=== PATIENT | male | born 1990 | race Hispanic/Latino ===

== ENCOUNTER 2018-01-08 19:21 | Observation (INO) | payer BC ==
[2018-01-08] MEDS ORDERED: ONDANSETRON 4 MG/2 ML VIAL ONE (21:05)
[2018-01-08] MEDS ORDERED: NA CHLORIDE 0.9% 1,000 ML ONE ×2 (21:05→22:52)
[2018-01-08] MEDS ORDERED: FAMOTIDINE 20 MG/2 ML VIAL IV ONE (21:05)
[2018-01-08 21:38] LABS: Absolute Lymphocytes (CBC) 1.3 K/uL (0.7-4.9); Absolute Monocytes 0.7 K/uL (0.1-1.3); Absolute Neutrophil 12.7 K/uL (1.8-8.0); Basophils % 0.6 % (0-1.3); Eosinophils % 0.1 % (0-4.4); Hematocrit 50.6 % (39.6-49.0); Lymphocytes % 8.8 % (15.3-44.8); MCH 31.7 pg (27.0-35.0); MCV 93.5 fL (80-100); Monocytes % 4.5 % (3.3-12.3); RBC Red Blood Cell Count 5.41 M/uL (4.33-5.43)
[2018-01-08 21:51] LABS: Albumin 5.1 g/dL (3.4-5.0); Bilirubin Direct 0.2 mg/dL (0-0.2); Potassium 4.4 mmol/L (3.5-5.1); Protein, Total 9.7 g/dL (6.4-8.2)
[2018-01-08 22:00] LABS: Blood Morphology Comment NOT SEEN (NOT SEEN); Platelet Estimate ADEQ; Urine White Blood Cell Casts OK
[2018-01-08 22:04] LABS: Calcium Oxalate Crystals- Ur MODERATE (NONE SEEN); Urine Bacteria 20-50 /HPF (NONE SEEN); Urine Culture Reflex Order REFLEXED; Urine Mucus 3+ /HPF (NONE SEEN); Urine RBC <5 /HPF (NONE SEEN)
[2018-01-08 22:08] LABS: Urine Blood NEGATIVE (NEG); Urine Glucose NEGATIVE (NEG); Urine Protein 3+ (NEG); Urine Specific Gravity >1.030 (1.005-1.030); Urine pH 5.5 (5.0-7.0)
--- NOTE | 2018-01-08 22:15 | RAD REPORT ---
EXAM DESCRIPTION: RAD - Chest Single View - 01/08/2018 9:57 pm CLINICAL HISTORY: vomiting Chest pain. COMPARISON: None FINDINGS: Portable technique limits examination quality. The lungs are grossly clear. The heart is normal in size. No displaced fractures. IMPRESSION: No acute intrathoracic process suspected.
--- NOTE | 2018-01-08 22:45 | ER ---
Nurse's Notes [facility] Name: Bryon Cerrato Jr Age: 27 yrs Sex: Male : 1990 Arrival Date: 01/08/2018 Time: 19:27 Bed 20 Private MD: Diagnosis: Acute kidney failure;Nausea and vomiting Presentation: 01/08 20:18 Presenting complaint: Patient states: "I've been throwing up since this morning. I aj1 can't eat or drink anything" Reports RUQ pain. Denies diarrhea, fever. Transition of care: patient was not received from another setting of care. Onset of symptoms was January 08, 2018. Risk Assessment: Do you want to hurt yourself or someone else? Patient reports no desire to harm self or others. Initial Sepsis Screen: Does the patient meet any 2 criteria? No. Patient's initial sepsis screen is negative. Does the patient have a suspected source of infection? No. Patient's initial sepsis screen is negative. Care prior to arrival: None. 20:18 Method Of Arrival: Ambulatory aj1 20:18 Acuity: SANTI 3 aj1 Triage Assessment: 20:20 General: Appears in no apparent distress. uncomfortable, Behavior is calm, cooperative, aj1 agitated. Pain: Complains of pain in left upper quadrant Pain currently is 5 out of 10 on a pain scale. Neuro: Level of Consciousness is awake, alert, obeys commands. Cardiovascular: Patient's skin is warm and dry. Respiratory: Airway is patent Respiratory effort is even, unlabored, Respiratory pattern is regular, symmetrical. GI: Reports nausea, vomiting, Patient currently denies diarrhea. Derm: Skin is pink, warm \\T\\ dry. normal. Historical: - Allergies: 20:20 No Known Allergies; aj1 - Home Meds: 20:20 None [Active]; aj1 - PMHx: 20:20 None; aj1 - PSHx: 20:20 Knee surgery; aj1 - Immunization history:: Flu vaccine is not up to date. - Social history:: Smoking status: Patient/guardian denies using tobacco. - Ebola Screening: : Patient denies travel to an Ebola-affected area in the 21 days before illness onset. Screenin:47 Abuse screen: Denies threats or abuse. Denies injuries from another. Nutritional lp1 screening: No deficits noted. Tuberculosis screening: No symptoms or risk factors identified. Fall Risk None identified. Assessment: 21:15 General: Appears in no apparent distress. Behavior is calm, cooperative, appropriate lp1 for age. Pain: Complains of pain in right upper quadrant Pain currently is 3 out of 10 on a pain scale. Quality of pain is described as aching. Neuro: Level of Consciousness is awake, alert, obeys commands. Cardiovascular: Patient's skin is warm and dry. Respiratory: Respiratory effort is even, unlabored, Breath sounds are clear bilaterally. GI: Abdomen is non-distended, Bowel sounds present X 4 quads. Abd is soft and non tender X 4 quads. Reports nausea, vomiting. : No signs and/or symptoms were reported regarding the genitourinary system. EENT: No signs and/or symptoms were reported regarding the EENT system. Derm: Skin is pink, warm \\T\\ dry. Musculoskeletal: Circulation, motion, and sensation intact. 22:30 Reassessment: Patient is alert, oriented x 3, equal unlabored respirations, skin lp1 warm/dry/pink. Nausea decreased at this time. 23:36 Reassessment: Patient appears in no apparent distress at this time. Patient and/or lp1 family updated on plan of care and expected duration. Pain level reassessed. Patient is alert, oriented x 3, equal unlabored respirations, skin warm/dry/pink. Patient aware of pending admission. 23:36 Reassessment: Dr. Leon at bedside to evaluate patient. lp1 01/09 00:20 Reassessment: Attempted to call report at this time, nurse will call back. lp1 Vital Signs: 01/08 20:20 BP 110 / 65; Pulse 94; Resp 18; Temp 98.5(TE); Pulse Ox 95% on R/A; Weight 88.45 kg aj1 (R); Height 5 ft. 8 in. (172.72 cm) (R); Pain 5/10; 21:09 BP 109 / 68 Supine; Pulse 84 LA; oe 21:10 BP 104 / 71 Sitting; Pulse 99 LA; oe 21:11 BP 109 / 69 Standing; Pulse 100 LA; oe 22:15 BP 109 / 67; Pulse 73; Resp 18; Pulse Ox 99% on R/A; lp1 23:00 BP 108 / 66; Pulse 78; Resp 18; Pulse Ox 99% on R/A; lp1 01/09 00:00 BP 97 / 59; Pulse 77; Resp 16; Pulse Ox 99% on R/A; lp1 01/08 20:20 Body Mass Index 29.65 (88.45 kg, 172.72 cm) aj1 ED Course: 01/08 19:27 Patient arrived in ED. es 20:20 Triage completed. aj1 20:20 Arm band placed on Patient placed in waiting room, Patient notified of wait time. aj1 20:47 Sugey Morris, RN is Primary Nurse. lp1 20:47 Jules Lyn PA is PHCP. cp 20:47 Ion Hanson MD is Attending Physician. cp 21:14 Inserted saline lock: 20 gauge in right antecubital area, using aseptic technique. lp1 Blood collected. 21:16 Patient has correct armband on for positive identification. Bed in low position. Call lp1 light in reach. Pulse ox on. NIBP on. 21:20 Urine Microscopic Only Sent. oe 21:56 X-ray completed. Portable x-ray completed in exam room. Patient tolerated procedure bb2 well. 21:57 XRAY Chest (1 view) In Process Unspecified. EDMS 22:43 Farnaz Ralph MD is Hospitalizing Provider. cp 22:51 CT Abd/Pelvis - Without Cont: no oral contrast In Process Unspecified. EDMS 23:37 No provider procedures requiring assistance completed. Patient admitted, IV remains in lp1 place. Administered Medications: 21:14 Drug: Zofran 4 mg Route: IVP; Site: right antecubital; lp1 22:46 Follow up: Response: Nausea is decreased lp1 21:14 Drug: Pepcid 20 mg Route: IVP; Site: right antecubital; lp1 22:46 Follow up: Response: No adverse reaction lp1 21:14 Drug: NS 0.9% 1000 ml Route: IV; Rate: 1 bolus; Site: right antecubital; lp1 22:45 Follow up: IV Status: Completed infusion; IV Intake: 1000ml lp1 22:50 Drug: NS 0.9% 1000 ml Route: IV; Rate: 1 bolus; Site: right antecubital; lp1 01/09 00:22 Follow up: IV Status: Completed infusion; IV Intake: 1000ml lp1 Intake: 01/08 22:45 IV: 1000ml; Total: 1000ml. lp1 01/09 00:22 IV: 1000ml; Total: 2000ml. lp1 Outcome: 01/08 22:44 Decision to Hospitalize by Provider. cp 23:37 Condition: stable lp1 23:37 Instructed on the need for admit. 01/09 00:31 Admitted to Tele via wheelchair, room 415, with chart, Report called to DOMINIQUE Villalobos lp1 01:06 Patient left the ED. lp1 Signatures: Dispatcher [employer] Norma Villegas, RN RN aj1 Sole Gamez Laura RN RN lp1 Jules Lyn, ALAN PA Chu Eugene Brittany bb2
--- NOTE | 2018-01-08 22:45 | EDPHYS ---
Physician Documentation [facility] Name: Bryon Cerrato Jr Age: 27 yrs Sex: Male : 1990 Arrival Date: 01/08/2018 Time: 19:27 Bed 20 Private MD: ED Physician Ion Hanson HPI: 01/08 21:00 This 27 yrs old Male presents to ER via Ambulatory with complaints of cp Vomiting, Fever, Abdominal Pain. 21:00 The patient presents to the emergency department with nausea, that is mild, vomiting, cp that is continuous. Onset: The symptoms/episode began/occurred today. Historical: - Allergies: 20:20 No Known Allergies; aj1 - Home Meds: 20:20 None [Active]; aj1 - PMHx: 20:20 None; aj1 - PSHx: 20:20 Knee surgery; aj1 - Immunization history:: Flu vaccine is not up to date. - Social history:: Smoking status: Patient/guardian denies using tobacco. - Ebola Screening: : Patient denies travel to an Ebola-affected area in the 21 days before illness onset. ROS: 21:05 Constitutional: Positive for poor PO intake, Negative for body aches, chills, fever. cp 21:05 Eyes: Negative for injury, pain, redness, and discharge. cp 21:05 ENT: Negative for drainage from ear(s), ear pain, sore throat, difficulty swallowing, difficulty handling secretions. 21:05 Cardiovascular: Negative for chest pain, edema, palpitations. 21:05 Respiratory: Negative for cough, shortness of breath, wheezing. 21:05 Abdomen/GI: Positive for nausea, vomiting, Negative for abdominal pain, diarrhea, constipation, black/tarry stool, rectal bleeding. 21:05 Back: Negative for pain at rest, pain with movement, radiated pain. 21:05 : Negative for urinary symptoms. 21:05 Skin: Negative for cellulitis, rash. 21:05 Neuro: Negative for altered mental status, headache, syncope, near syncope, weakness. 21:05 All other systems are negative. Exam: 21:10 Constitutional: The patient appears in no acute distress, alert, awake, non-toxic, well cp developed, well nourished. 21:10 Head/Face: Normocephalic, atraumatic. Eyes: Pupils equal round and reactive to light, cp extra-ocular motions intact. Lids and lashes normal. Conjunctiva and sclera are non-icteric and not injected. Cornea within normal limits. Periorbital areas with no swelling, redness, or edema. 21:10 ENT: External ear(s): are unremarkable, Ear canal(s): are normal, clear, TM's: dullness, bilaterally, Nose: is normal, Mouth: Lips: dry, Oral mucosa: dry, Posterior pharynx: is normal, airway is patent, no erythema, no exudate. 21:10 Neck: ROM/movement: is normal, is supple, without pain, no range of motions limitations, no meningismus, no nuchal rigidity. 21:10 Chest/axilla: Inspection: normal, Palpation: is normal, no crepitus, no tenderness. 21:10 Cardiovascular: Rate: normal, Rhythm: regular, Edema: is not appreciated, JVD: is not appreciated. 21:10 Respiratory: the patient does not display signs of respiratory distress, Respirations: normal, no use of accessory muscles, no retractions, no splinting, no tachypnea, labored breathing, is not present, Breath sounds: are clear throughout, no decreased breath sounds, no stridor, no wheezing. 21:10 Abdomen/GI: Inspection: abdomen appears normal, Bowel sounds: active, all quadrants, Palpation: soft, in all quadrants, mild abdominal tenderness, in the epigastric area, right upper quadrant and left upper quadrant, rebound tenderness, is not appreciated, involuntary guarding, is not appreciated. 21:10 Back: pain, is absent, ROM is normal. 21:10 Skin: cellulitis, is not appreciated, no rash present. 21:10 Neuro: Orientation: to person, place \T\ time. Mentation: lucid, able to follow commands, Cerebellar function: is grossly normal, Motor: moves all fours, strength is normal, Sensation: is normal. Vital Signs: 20:20 BP 110 / 65; Pulse 94; Resp 18; Temp 98.5(TE); Pulse Ox 95% on R/A; Weight 88.45 kg aj1 (R); Height 5 ft. 8 in. (172.72 cm) (R); Pain 5/10; 21:09 BP 109 / 68 Supine; Pulse 84 LA; oe 21:10 BP 104 / 71 Sitting; Pulse 99 LA; oe 21:11 BP 109 / 69 Standing; Pulse 100 LA; oe 22:15 BP 109 / 67; Pulse 73; Resp 18; Pulse Ox 99% on R/A; lp1 23:00 BP 108 / 66; Pulse 78; Resp 18; Pulse Ox 99% on R/A; lp1 01/09 00:00 BP 97 / 59; Pulse 77; Resp 16; Pulse Ox 99% on R/A; lp1 01/08 20:20 Body Mass Index 29.65 (88.45 kg, 172.72 cm) aj1 MDM: 01/08 20:47 Patient medically screened. cp 22:35 Data reviewed: vital signs, nurses notes, lab test result(s), and as a result, I will cp admit patient. 22:35 Test interpretation: by ED physician or midlevel provider: plain radiologic studies. cp Counseling: I had a detailed discussion with the patient and/or guardian regarding: the historical points, exam findings, and any diagnostic results supporting the discharge/admit diagnosis, lab results, radiology results. 01/08 20:52 Order name: Amylase, Serum; Complete Time: 22:29 01/08 20:52 Order name: Basic Metabolic Panel; Complete Time: 22:29 cp 01/08 20:52 Order name: CBC with Diff; Complete Time: 22:29 cp 01/08 20:52 Order name: Creatinine for Radiology; Complete Time: 22:29 01/08 20:52 Order name: Hepatic Function; Complete Time: 22:29 cp 01/08 20:52 Order name: Lipase; Complete Time: 22:29 cp 01/08 20:52 Order name: Urine Microscopic Only; Complete Time: 22:29 cp 01/08 20:58 Order name: Urine Dipstick--Ancillary (enter results); Complete Time: 22:29 ms 01/08 21:09 Order name: XRAY Chest (1 view); Complete Time: 22:29 cp 01/08 21:39 Order name: CBC Smear Scan; Complete Time: 22:29 EDMS 01/08 22:09 Order name: Urine Culture [facility] 01/08 22:31 Order name: CT Abd/Pelvis - Without Cont: no oral contrast 01/08 20:52 Order name: IV Saline Lock; Complete Time: 21:14 cp 01/08 20:52 Order name: Labs collected and sent; Complete Time: 21:15 01/08 20:52 Order name: Urine Dipstick-Ancillary (obtain specimen); Complete Time: 21:00 01/08 20:52 Order name: Orthostatics; Complete Time: 21:20 cp Administered Medications: 21:14 Drug: Zofran 4 mg Route: IVP; Site: right antecubital; lp1 22:46 Follow up: Response: Nausea is decreased lp1 21:14 Drug: Pepcid 20 mg Route: IVP; Site: right antecubital; lp1 22:46 Follow up: Response: No adverse reaction lp1 21:14 Drug: NS 0.9% 1000 ml Route: IV; Rate: 1 bolus; Site: right antecubital; lp1 22:45 Follow up: IV Status: Completed infusion; IV Intake: 1000ml lp1 22:50 Drug: NS 0.9% 1000 ml Route: IV; Rate: 1 bolus; Site: right antecubital; lp1 01/09 00:22 Follow up: IV Status: Completed infusion; IV Intake: 1000ml lp1 Disposition: 06:41 Co-signature as Attending Physician, Ion Hanson MD. pk Disposition: 01/08/18 22:44 Hospitalization ordered by Farnaz Ralph for Inpatient Admission. Preliminary diagnosis are Acute kidney failure, Nausea and vomiting. - Bed requested for Telemetry/MedSurg (Inpatient). - Status is Inpatient Admission. lp1 - Condition is Stable. - Problem is new. - Symptoms have improved. UTI on Admission? No Signatures: Dispatcher [employer] EDCA Norma De Jesus RN RN aj1 Katy Mendez RN RN kl Lam, Pin, MD MD pk Sugey Morris RN RN lp1 Jules Lyn PA PA cp Corrections: (The following items were deleted from the chart) 00:00 01/08 22:44 Hospitalization Ordered by Farnaz Ralph MD for Inpatient Admission. pepe Preliminary diagnosis is Acute kidney failure; Nausea and vomiting. Bed requested for Telemetry/MedSurg (Inpatient). Status is Inpatient Admission. Condition is Stable. Problem is new. Symptoms have improved. UTI on Admission? No. cp 01/09 01:06 00:00 01/08/2018 22:44 Hospitalization Ordered by Farnaz Ralph MD for Inpatient lp1 Admission. Preliminary diagnosis is Acute kidney failure; Nausea and vomiting. Bed requested for Telemetry/MedSurg (Inpatient). Status is Inpatient Admission. Condition is Stable. Problem is new. Symptoms have improved. UTI on Admission? No. kl
--- NOTE | 2018-01-08 23:52 | P.HP ---
Certification for Inpatient Patient admitted to: Observation With expected LOS: <2 Midnights Practitioner: I am a practitioner with admitting privileges, knowledge of patient current condition, hospital course, and medical plan of care. Services: Services provided to patient in accordance with Admission requirements found in Title 42 Section 412.3 of the Code of Federal Regulations Patient History Date of Service: 01/08/18 Reason for admission: Intractable nausea vomiting History of Present Illness: Mr. Cerrato is a 27-year-old male, with a pretty healthy past medical history, who start this morning with persistent nausea and vomiting. He was unable to keep any solid or fluid. He also is complaining of left lower quadrant pain, 4/ 10 of intensity, nonradiating. The patient denied any fever or chills. He also denied diarrhea. About 1 week ago, when he was working outside, he felt like he is was going to faint, however after this episode he recovered and he was asymptomatic until today. Laboratory work is remarkable for leukocytosis, 14.8 K, elevated creatinine at 3.7. His vital signs remained stable during his stay in ED. Home medications list reviewed: Yes (None) - Past Medical/Surgical History Past Medical History: Reviewed- Non-Contributory -: Knee surgery - Family History Family History: Reviewed- Non-Contributory - Social History Smoking Status: Never smoker Alcohol use: No CD- Drugs: No Caffeine use: Yes Place of Residence: Home Review of Systems 10-point ROS is otherwise unremarkable Physical Examination - Physical Exam General: Alert, In no apparent distress HEENT: Atraumatic, PERRLA, Mucous membr. moist/pink, EOMI, Sclerae nonicteric Neck: Supple, 2+ carotid pulse no bruit, No LAD, Without JVD or thyroid abnormality Respiratory: Clear to auscultation bilaterally, Normal air movement Cardiovascular: Regular rate/rhythm, Normal S1 S2 Gastrointestinal: Normal bowel sounds, No tenderness Musculoskeletal: No tenderness Integumentary: No rashes Neurological: Normal speech, Normal strength at 5/5 x4 extr, Normal tone, Normal affect Lymphatics: No axilla or inguinal lymphadenopathy - Studies Laboratory Data (last 24 hrs) 01/08/18 21:10: Creatinine 3.70 H 01/08/18 21:10: WBC 14.8 H, Hgb 17.2, Hct 50.6 H, Plt Count 266 01/08/18 21:10: Sodium 138, Potassium 4.4, BUN 28 H, Creatinine 3.70 H, Glucose 120 H, Total Bilirubin 1.0, AST 20, ALT 35, Alkaline Phosphatase 110, Amylase 85 , Lipase 168 Assessment and Plan - Problems (Diagnosis) (1) Intractable nausea and vomiting Current Visit: Yes Status: Acute Qualifiers: Vomiting type: unspecified Qualified Code(s): R11.2 - Nausea with vomiting , unspecified (2) Acute renal injury Current Visit: Yes Status: Acute - Plan The patient will be admitted to the hospital due to intractable nausea vomiting , and also acute renal injury. The etiology of his symptoms is not clear yet. CT abdomen and pelvis has been done, report is pending. Will order antiemetic medication, IV fluid, I will start with clear liquid diet. - Advance Directives Does patient have a Living Will: No Does patient have a Durable POA for Healthcare: No - Code Status/Comfort Care Code Status Assessed: Yes Code Status: Full Code
--- NOTE | 2018-01-09 01:18 | RAD REPORT ---
EXAM DESCRIPTION: CT - Abdomen Pelvis Wo Contrast - 01/08/2018 10:50 pm CLINICAL HISTORY: Abdominal pain. acute renal failure COMPARISON: Chest Single View dated 01/08/2018 TECHNIQUE: CT imaging of the abdomen and pelvis was performed without contrast. Solid organ, bowel a nd vascular assessment is limited due to lack of IV and oral contrast. All CT scans are performed using dose optimization technique as appropriate and may include automated exposure control or mA/KV adjustment according to patient size. FINDINGS: The lower lung lopez are clear. The liver, spleen, pancreas, adrenal glands and kidneys are within normal limits for a limited non-co ntrast examination. No bowel obstruction, free air, free fluid or abscess. The appendix is normal. The osseous structures are within normal limits. IMPRESSION: No acute intra-abdominal or pelvic findings. A limited non-contrast examination was performed as detailed.
[2018-01-09 01:19] VITALS: BMI 28.0
[2018-01-09] MEDS ORDERED: ACETAMINOPHEN 500 MG TAB PO PRN (01:19)
[2018-01-09] MEDS ORDERED: ONDANSETRON 4 MG/2 ML VIAL IV PRN (01:19)
[2018-01-09] MEDS: NA CHLORIDE 0.9% 1,000 ML IV SCH ×3 (02:19→16:31)
[2018-01-09 05:20] LABS: Absolute Lymphocytes (CBC) 1.9 K/uL (0.7-4.9); Absolute Monocytes 0.9 K/uL (0.1-1.3); Absolute Neutrophil 6.9 K/uL (1.8-8.0); Basophils % 0.8 % (0-1.3); Eosinophils % 0.9 % (0-4.4); Lymphocytes % 19.1 % (15.3-44.8); MCH 32.2 pg (27.0-35.0); MCV 93.3 fL (80-100); MPV 8.8 fL (7.6-11.3); RBC Red Blood Cell Count 4.39 M/uL (4.33-5.43)
[2018-01-09 05:28] LABS: Potassium 3.3 mmol/L (3.5-5.1)
[2018-01-09] MEDS ORDERED: POTASSIUM CL SA 10 MEQ TAB PO ONE ×2 (07:09→14:06)
--- NOTE | 2018-01-09 13:10 | P.PN ---
Subjective Date of Service: 01/09/18 Chief Complaint: Intractable nausea vomiting Patient was seen and examined at bedside with RN. Chart reviewed. Patient is doing much better than before. Nausea vomiting has resolved. Patient was able to keep his diet down. No pain noted at this time. Review of Systems General: As per HPI Physical Examination - Vital Signs Temperature: 97.5 F Blood Pressure: 105/58 Pulse: 67 Respirations: 18 Pulse Ox (%): 99 - Physical Exam General: Alert, In no apparent distress HEENT: Atraumatic, PERRLA, EOMI Neck: Supple, JVD not distended Respiratory: Clear to auscultation bilaterally, Normal air movement Cardiovascular: Regular rate/rhythm, Normal S1 S2 Gastrointestinal: Normal bowel sounds, No tenderness Musculoskeletal: No tenderness Integumentary: No rashes Neurological: Normal speech, Normal tone, Normal affect Lymphatics: No axilla or inguinal lymphadenopathy - Studies Laboratory Data (last 24 hrs) 01/08/18 21:10: Creatinine 3.70 H 01/08/18 21:10: WBC 14.8 H, Hgb 17.2, Hct 50.6 H, Plt Count 266 01/08/18 21:10: Sodium 138, Potassium 4.4, BUN 28 H, Creatinine 3.70 H, Glucose 120 H, Total Bilirubin 1.0, AST 20, ALT 35, Alkaline Phosphatase 110, Amylase 85 , Lipase 168 Medications List Reviewed: Yes Assessment & Plan - Problems (Diagnosis) (1) Acute renal injury Current Visit: Yes Status: Acute Plan: BUN and creatinine improving today. Most likely secondary to hypovolemia secondary to intractable nausea and vomiting -IV fluids at this time -will observe for another 24 hr for further improvement (2) Intractable nausea and vomiting Current Visit: Yes Status: Acute Plan: Resolved now -patient advanced to a regular diet -Zofran p.r.n. for nausea Qualifiers: Vomiting type: unspecified Qualified Code(s): R11.2 - Nausea with vomiting , unspecified Discharge Plan: Home Plan to discharge in: 24 Hours - Code Status/Comfort Care Code Status Assessed: Yes Critical Care: No
[2018-01-09 13:58] LABS: Potassium 3.8 mmol/L (3.5-5.1)
[2018-01-09 23:47] VITALS: O2SAT 96
[2018-01-10] MEDS: NA CHLORIDE 0.9% 1,000 ML IV SCH ×2 (00:33→07:57)
[2018-01-10 05:47] LABS: Magnesium 2.1 mg/dL (1.8-2.4); Potassium 4.5 mmol/L (3.5-5.1)
[2018-01-10 08:52] VITALS: BP 118/59; TEMP 97.2
--- NOTE | 2018-01-10 12:14 | P.DS ---
Admission Date: 01/08/18 Discharge Date: 01/10/18 Disposition: ROUTINE DISCHARGE Discharge Condition: GOOD Reason for Admission: Intractable nausea vomiting - Problems (1) Acute renal injury Status: Acute (2) Intractable nausea and vomiting Status: Acute Qualifiers: Vomiting type: unspecified Qualified Code(s): R11.2 - Nausea with vomiting , unspecified (3) Nephrolithiasis Status: Suspected Brief History of Present Illness: Mr. Cerrato is a 27-year-old male, with a pretty healthy past medical history, who start this morning with persistent nausea and vomiting. He was unable to keep any solid or fluid. He also is complaining of left lower quadrant pain, 4/ 10 of intensity, nonradiating. The patient denied any fever or chills. He also denied diarrhea. About 1 week ago, when he was working outside, he felt like he is was going to faint, however after this episode he recovered and he was asymptomatic until today. Laboratory work is remarkable for leukocytosis, 14.8 K, elevated creatinine at 3.7. His vital signs remained stable during his stay in ED. Hospital Course: Overall during the hospital stay patient remained stable Patient was initially admitted to the hospital for intractable nausea vomiting and left lower quadrant pain. Patient was found to have acute kidney injury while here in the hospital. Most likely patient had nephrolithiasis and passed a stone as his urine was positive for cannabis him ox hallux crystals. Patient was given IV fluids here in the hospital and had marked improvement in his kidney function along with pain intractable nausea and vomiting had resolved. At that time patient was then discharged home under stable condition. Patient is to follow up with primary care provider in about 1-2 days post discharge Vital Signs/Physical Exam: Temp Pulse Resp BP Pulse Ox 97.2 F 67 18 118/59 L 98 01/10/18 08:00 01/10/18 08:00 01/10/18 08:00 01/10/18 08:00 01/10/18 08:00 General: Alert, In no apparent distress HEENT: Atraumatic, PERRLA, EOMI Neck: Supple, JVD not distended Respiratory: Clear to auscultation bilaterally, Normal air movement Cardiovascular: Regular rate/rhythm, Normal S1 S2 Gastrointestinal: Normal bowel sounds, No tenderness Musculoskeletal: No tenderness Integumentary: No rashes Neurological: Normal speech, Normal tone, Normal affect Lymphatics: No axilla or inguinal lymphadenopathy Laboratory Data at Discharge: WBC 9.8 K/uL (4.3-10.9) D 01/09/18 04:41 Hgb 14.2 g/dL (13.6-17.9) D 01/09/18 04:41 Hct 41.0 % (39.6-49.0) D 01/09/18 04:41 Plt Count 221 K/uL (152-406) 01/09/18 04:41 Sodium 143 mmol/L (136-145) 01/10/18 04:25 Potassium 4.5 mmol/L (3.5-5.1) 01/10/18 04:25 BUN 15 mg/dL (7-18) 01/10/18 04:25 Creatinine 1.00 mg/dL (0.55-1.3) D 01/10/18 04:25 Glucose 89 mg/dL (74-106) 01/10/18 04:25 Magnesium 2.1 mg/dL (1.8-2.4) 01/10/18 04:25 Total Bilirubin 1.0 mg/dL (0.2-1.0) 01/08/18 21:10 AST 20 U/L (15-37) 01/08/18 21:10 ALT 35 U/L (12-78) 01/08/18 21:10 Alkaline Phosphatase 110 U/L (45-117) 01/08/18 21:10 Amylase 85 U/L (25-115) 01/08/18 21:10 Lipase 168 U/L (73-393) 01/08/18 21:10 Home Medications: NK [No Home Meds] 01/09/18 Patient Discharge Instructions: Please F.u with PCP in 1 to 2 days post discharge. You were admitted to the hospital for CATIA most likely 2.2 to Kidney stone that passed. Diet: Regular Activity: Ad genevieve
== END 2018-01-10 11:27 | disposition home or self-care (01) ==
LOC: ER 19:21 → ERHOLD 23:27 → 4TH 01-09 00:40
PROVIDERS: ADMIT Internal Medicine; ATTEND Internal Medicine
DX: N17.9 Acute kidney failure, unspecified (principal); R11.2 Nausea with vomiting, unspecified
CPT/HCPCS: 36415; 71045; 74176; 80048; 80076; 81003; 81015; 82150; 83690; 83735; 84132; 85025; 87086; 87088; 96361; 96374; 96375; 99285; G0378; J2405; J7030